=== PATIENT | female | born 1965 | race Caucasian/White ===

== ENCOUNTER 2023-06-23 10:32 | Emergency (ER) | payer MEDICARE, SELFPAY ==
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
[2023-06-23 10:48] VITALS: BP 150/104; PULSE 98; RESP 26; O2SAT 96
[2023-06-23] MEDS: Ziprasidone 20 MG VIAL 10 MG IM (11:06)
[2023-06-23 11:30] LABS: Abs Immature Grans 0.03 10^3/uL (0.0-0.06); Absolute Basophil Count 0.06 10^3/uL (0.0-0.2); Absolute Eosinophil Count 0.02 10^3/uL (0.0-0.7); Absolute Lymphocyte Count 1.94 10^3/uL (1.2-3.4); Absolute Monocyte Count 0.57 10^3/uL (0.1-0.8); Absolute Neutrophil Count 6.53 10^3/uL (1.2-6.7); Basophils % 0.7; Eosinophils % 0.2; HCT 38.8 % (36.0-46.0); Immature Grans % 0.3; Lymphocytes % 21.2; MCH 30.7 pg (27.0-33.0); MCHC 33.5 % (32.0-36.0); MCV 92 fL (80-95); MPV 10.3 fL (8.0-11.0); Monocytes % 6.2; Neutrophils % 71.4; Platelet Count 247 10^3/uL (130-400); RBC 4.23 10^6/uL (3.93-5.22); RDW 13.4 % (11.7-14.6); RDW-SD 45.8 fL; WBC 9.15 10^3/uL (4.4-10.8)
[2023-06-23 11:55] LABS: ALT 64 U/L (14-59); AST 109 U/L (15-37); Albumin 3.8 g/dL (3.4-5.0); Alkaline Phosphatase 71 U/L (46-116); Anion Gap 12.5 mmol/L (3-11); BUN 13 mg/dL (7-18); Bilirubin, Total 1.3 mg/dL (0.2-1.0); CO2 24.5 mmol/L (21.0-32.0); CREATININE 0.8 mg/dL (0.55-1.02); Calcium 9.1 mg/dL (8.5-10.1); Chloride 99 mmol/L (98-107); Estimated GFR 85.89 (mL/min/1.73m2); Glucose 165 mg/dL (74-106); Potassium 3.4 mmol/L (3.5-5.1); Sodium 136 mmol/L (136-145); TSH (W/Ref FT4) 2.12 uIU/mL (0.36-3.74); Total Protein 6.8 g/dL (6.4-8.2)
[2023-06-23 11:56] LABS: ETHANOL BLOOD < 3.0 mg/dL (<10)
[2023-06-23 11:58] LABS: Salicylate 5.1 mg/dL (<2.8)
[2023-06-23 12:00] LABS: Acetaminophen < 2 ug/mL (10-30)
--- NOTE | 2023-06-23 12:00 | DI.CT_ITS ---
Exam(s) CT HEAD WO EXAM: CT HEAD WO CLINICAL HISTORY: psychosis. TECHNIQUE: Imaging Protocol: Axial computed tomography images with coronal and sagittal reformatted images were created and reviewed COMPARISON: No exams were available for comparison FINDINGS: Ventricles and Extra axial spaces: Normal in size and morphology for the patient's age. Hemorrhage: None. Cerebral parenchyma: No evidence of acute infarct or mass. Midline shift: None. Brainstem/Cerebellum: Normal. Calvarium: Normal. Visualized Paranasal sinuses:Clear. Mastoids: Clear. Soft Tissues: Unremarkable. ORBITS: Unremarkable. PITUITARY: Not enlarged. IMPRESSION: No acute intracranial process. RADIATION DOSE DELIVERED: Total DLP DATA REPOSITORY: All CT scans at this facility are submitted to the National Radiology Data Registry (NRDR) Dose Index Registry (DIR) with the [employer] (ACR). RADIATION OPTIMIZATION: All CT scans at this facility use at least one of these dose optimization te chniques: automated exposure control; mA and/or kV adjustment per patient size (includes targeted exa ms where dose is matched to clinical indication); or iterative reconstruction.
[2023-06-23 12:13] LABS: Bilirubin Negative (Negative); Blood Negative (Negative); Clarity Clear (Clear); Glucose Negative (Negative); Ketones Trace mg/dL (Negative); Leukocyte Esterase Negative (Negative); Nitrite Negative (Negative); Specific Gravity 1.015 (1.005-1.025); Urobilinogen 0.2 mg/dL (Up to 0.2); pH 5.5 (5-8)
[2023-06-23 12:26] LABS: *AMPHETAMINES SCREEN URINE Negative (Negative); *BARBITURATES SCREEN URINE Negative (Negative); *BENZODIAZEPINES SCREEN URINE Negative (Negative); Cannabinoids THC Negative (Negative); Cocaine Screen,Urine Negative (Negative); METHADONE URINE SCREEN Negative (Negative); OPIATES URINE SCREEN Negative (Negative); Tricyclic Antidepressants Negative (Negative)
[2023-06-23 12:49] LABS: Ammonia < 10 umol/L (11-32)
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
--- NOTE | 2023-06-23 15:21 | W.EDPROG ---
Date of service: 06/23/23 Time of Service: 15:22 Medical Decision Making Patient here involuntary for psychosis and marcie, appears to have had this in the past and has been at [facility] several times for this in the past. Pending second WOO, patient currently calm and no acute complaints will continue to monitor until safe disposition found. Quality:SDOK Health Related Social Needs: No Data to Display Discharge Plan Discharge Details Chief Complaint: PsychEval Primary Care Provider: Unknown,Unknown ED Provider: Franki Brand Home Meds and New Rx's Prescriptions: No Action Unable to Obtain
[2023-06-23] MEDS: DULoxetine 20 MG CAP PO (19:33)
[2023-06-24] MEDS: Ibuprofen 800 MG TAB PO (03:47)
[2023-06-24] MEDS: DULoxetine 20 MG CAP PO (08:37)
[2023-06-24 08:38] VITALS: PULSE 97; RESP 16; TEMP 36.6; O2SAT 96
[2023-06-24] MEDS: Gabapentin 100 MG CAP PO ×3 (08:54→20:12)
--- NOTE | 2023-06-24 10:11 | PDOC.CMSAFE ---
Date of service: 06/24/23 Time of Service: 10:11 Care Management Safety Plan Status Status: Involuntary Reason for Wait Reason for Wait: Inpatient Admission Safety Plan Safety Plan: INVOLUNTARY FOR INPATIENT PSYCHIATRIC STABILIZATION.? Patient is appropriate in all interactions since arriving at [facility]; Pt has demonstrated appropriate coping and communication skills, has articulated his or her needs and concerns and is fully engaged during staff interactions. Safety plan has been established with patient, and care team, to adhere to patient goals, identify restrictions based on behavioral status, address nutrition, and determine allowed personal belongings, tools for hygiene and personal care. Determine level of activity including ambulation, level of supervision, visitors, and determine privileges based on behaviors and level of engagement by pt. SAFETY PLAN: 1. Will remain on suicide precautions, in paper clothes 2. Will remain in Zone B under direct supervision of one-on-one staff at all times provided by CPSO; DWAINE, CONSTRUCTION PROJECT COORDINATOR electric motor winder. 3. May have paper cups, plates, finger foods as well as a cardboard spoon with which to eat meals. 4. Follow [facility] Management of the Admitted Behavioral Health Patient policy. 5. Shower available in Zone B without restriction. 6. Personal belongings-soft items permitted at RN discretion. 7. Visitors-none at this time. 8. Activities: soft cart items approved per RN discretion. 9.? Bathroom available in Zone B without restriction. 10. Phone: limited to [facility] cordless phone at RN discretion. Due to INVOLUNTARY status, patient is being held at [facility] by the Department of Mental Health ([facility]) until 2nd certification by [facility] Psychiatrist can be performed (within 24 hours). Staff will provide de-escalation support (CPI) as needed. If patient wishes to leave [facility], staff will contact [facility] Crisis Screener ([phone]) and Litigation Associate ([phone]) as soon as possible. In the event of elopement, notify [place] [employer] ([phone]). Patient is currently involuntarily at [facility]. [facility] Frontline Foot Gatherer will continue seeking placement. Please contact the Litigation Associate for any needed changes to Safety Plan. Safety plan has been provided to interdepartmental care team. Patient will be transported by [facility] at time of discharge.
[2023-06-24] MEDS: Nicotine 4 MG GUM (11:06)
[2023-06-24] MEDS: Ibuprofen 600 MG TAB PO ×2 (13:41→20:13)
[2023-06-24] MEDS: Nicotine 4 MG GUM CH (19:02)
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
--- NOTE | 2023-06-24 20:22 | NUR.NOTE ---
Nursing Note:pt given po motrin and gabapentin, refused geodon, po egg salad sandwich given
--- NOTE | 2023-06-24 21:17 | NUR.NOTE ---
this patient showered , and i cleaned her room today. Nursing Note:
[2023-06-25] MEDS: Ibuprofen 600 MG TAB PO (03:42)
[2023-06-25] MEDS: Nicotine 4 MG GUM CH ×2 (05:39→13:13)
[2023-06-25] MEDS: Gabapentin 100 MG CAP PO ×2 (08:25→13:27)
--- NOTE | 2023-06-25 08:25 | W.EDPROG ---
Date of service: 06/25/23 Time of Service: 08:25 Medical Decision Making Patient signed out to me by Dr. Mcfadden still pending placement on involuntary status for marcie. No issues reported during Dr. Mcfadden shift, patient currently calm and cooperative walking around without acute complaints. Will continue to monitor until safe disposition found Quality:SDOH Health Related Social Needs: No Data to Display Sign Out Sign Out Data: Sign Out Comment: Involuntary for manic behavior, second CERT completed, no issues during shift. Last updated by Franki Brand MD at 06/23/23 21:59 Sign Out Comment: Involuntary admission, second certification completed. Pending placement. No intervals issues throughout the night. Last updated by Goran Mcfadden DO at 06/24/23 07:58 Sign Out Comment: Involuntary placement with psychosis 2nd cert completed , placement pending Meds, diet and PRNs ordered Last updated by Leeanna Preston MD at 06/24/23 15:51 Sign Out Comment: Remains on EE, 2nd cert completed. No issues on evening shift. Last updated by Alo Pittman MD at 06/24/23 22:18 Sign Out Comment: Patient was stable throughout the night. No interventions needed. Second certification completed, pending placement Last updated by Goran Mcfadden DO at 06/25/23 07:34 Discharge Plan Discharge Details Chief Complaint: PsychEval Primary Care Provider: Unknown,Unknown ED Provider: Franki Brand Home Meds and New Rx's Prescriptions: No Action Unable to Obtain
[2023-06-25] MEDS: DULoxetine 20 MG CAP PO (08:27)
--- NOTE | 2023-06-25 10:51 | NUR.NOTE ---
pt came out of room angry, asked for her belongings then punched the glass and went back to sleep:
--- NOTE | 2023-06-25 11:08 | NUR.NOTE ---
report called to geraldine at [facility] @[phone], nurse said she will call back with eta on [facility] transport
--- NOTE | 2023-06-25 13:41 | PDOC.CMPRO ---
Date of service: 06/25/23 Time of Service: 13:42 Care Management Progress Note Progress Note Text Progress Note Text: CM met with staff in the ED including RN, CPSO, RN toy assembly supervisor, and ROGERS Strong, for a huddle to discuss Aide's plan of care. Per staff, Aide has been agitated this morning, demanding her clothes and coffee, and at one point she punched the glass window near where the CPSO was sitting. ROGERS Strong, stated that she would not engage with her and asked Ligia to leave the room. [facility] has elevated Aide to level 1 status, due to acuity and insurance concerns, and [facility] has accepted her for admission today. [facility] coordinated transport, which staff anticipates will be arriving around 3pm today.
--- NOTE | 2023-06-25 14:44 | NUR.NOTE ---
Patient just stated that she came with boots that were not hers. They were just something she put on when she needed boots. She would like us to dispose of them. I told her when she was ready to leave that we would do it then. Nursing Note:
--- NOTE | 2023-06-25 15:34 | NUR.NOTE ---
pt leaving with EE transport to [facility] now, all belongings confirmed with pt and paperwork packet handed to transporter
--- NOTE | 2023-06-25 15:38 | NUR.NOTE ---
Patient stated on transfer, while going through her belongings that she did not want the boots and to throw them out. She did not take them. Nursing Note:
--- NOTE | 2023-06-25 18:41 | MHPN_ITS ---
Date of service: 06/25/23 Time of Service: 18:41 Mental Health Emergency Note Release [facility] release signed:: Yes Reason for Visit The client arrived on 06.23.23 voluntarily after a mobile outreach at [facility]. The client was subsequently placed on EE status due to dangerous behaviors, evidence of psychosis and risk of harm. This was her final assessment attempt as she has been accepted to [facility]. In the last 2 weeks has the pt presented for ES prior to today?: Unknown Impression The client was unable to be engaged today for an assessment. It was reported by nursing that she came to the nursing window and punched the glass. She demanded her clothes and a coffee. She was informed that if she could be nice she would get a coffee. She went to her room and layed down. This clinician walked in her room after knocking and asked the client how she was doing? She turned over in her bed and addressed this clinician by name. She sat up and this clinician asked her how she was doing? She stood up, walked to the bathroom to use it and when she came back said you need to leave my room please? This client would not engage any further. This clinician participated in a huddle and the client was learned to have been accepted to . Plan/Disposition Recommended Disposition: Hospitalization facilities contacted. Plan: Client accepted to and transported at 3pm via [facility]. Person reported agreement to plan: Yes Reports/communication Outcome discussed with: ED/Personnel
== END 2023-06-25 15:37 | disposition left against medical advice (07) ==
PROVIDERS: Emergency Medicine; Emergency Provider Emergency Medicine
DX: F30.2 Manic episode, severe with psychotic symptoms (principal)
CPT/HCPCS: 00123; 36415; 80053; 80307; 82962; 99285; 70450; 80320; 80329; 81003; 81025; 82140; 84443; 85025; J3486

== ENCOUNTER 2023-09-07 19:17 | Emergency (ER) | payer MEDICARE, SELFPAY ==
[2023-09-07 19:18] VITALS: BP 111/74; PULSE 73; RESP 20; TEMP 36.7; O2SAT 98
--- NOTE | 2023-09-07 19:22 | W.ED.GENAD ---
Discharge Plan Disposition Patient Disposition: Home Condition: Stable Discharge Details Clinical Impression: Encounter for medication refill, Anxiety Primary Care Provider: Unknown,Unknown ED Provider: Lacho Bean Meds and New Rx's Prescriptions: New gabapentin 300 mg capsule 300 mg PO TID Qty: 30 0RF duloxetine [Cymbalta] 20 mg capsule,delayed release(DR/EC) 20 mg PO BID Qty: 20 0RF No Action gabapentin 300 mg capsule 300 mg PO TID duloxetine 20 mg capsule,delayed release(DR/EC) 40 mg PO ONCE Discharge Instructions Instructions: Anxiety (ED) Discharge Data Discharge Physician: Lacho Bean HPI General Date/Time Provider Initiated Documentation: 09/07/23 19:22. HPI Narrative: Patient who presents to the emergency department via ambulance stating that she is homeless and they stole her Cymbalta and her gabapentin that she takes daily and is homeless. Reports that she has been walking the streets and she states that she has money but there is told her purse where she has her Cymbalta and her gabapentin. Denies any suicidal ideation states is very anxious Related Data Home Medications Medication Instructions Recorded Confirmed duloxetine 20 mg capsule,delayed 40 mg PO ONCE 09/07/23 09/07/23 release duloxetine 20 mg capsule,delayed 20 mg PO BID #20 caps 09/07/23 release (Cymbalta) gabapentin 300 mg capsule 300 mg PO TID 09/07/23 09/07/23 gabapentin 300 mg capsule 300 mg PO TID #30 caps 09/07/23 Previous Rx's Medication Instructions Recorded duloxetine 20 mg capsule,delayed 20 mg PO BID #20 caps 09/07/23 release (Cymbalta) gabapentin 300 mg capsule 300 mg PO TID #30 caps 09/07/23 Allergies Allergy/AdvReac Type Severity Reaction Status Date / Time Unable to Assess Allergy Unverified 09/07/23 19:24 General HUE: 2 Review of Systems Narrative: Review of Systems: Constitutional: No fevers, chills, sweats Eye: No recent visual problems ENT: No ear pain, nasal congestion, sore throat Respiratory: No shortness of breath, cough Cardiovascular: No Chest pain, palpitations, syncope Gastrointestinal: No nausea, vomiting, diarrhea Genitourinary: No hematuria Ethan/Lymph: Negative for bruising tendency, swollen lymph glands Endocrine: Negative for excessive thirst, excessive hunger Musculoskeletal: No back pain, neck pain, joint pain, muscle pain, decreased range of motion Integumentary: No rash, pruritus, abrasions Neurologic: Alert & oriented X 4 Psychiatric: No depression Exam Narrative Exam Narrative: Exam; vitals signs as reported above normal Constitutional; In no acute distress, afebrile General: cooperative, healthy appearing, comfortable and no acute distress HEENT: Head: normal to inspection, no palpable skull fracture and normocephalic atraumatic Eyes: : appearance normal, both eyes and all related structures EOM intact bilaterally Pupils: PERRL : conjunctiva normal Direct ophthalmoscopy: normal light reflex, normal conjunctiva, normal visual acuity Ears: Normal TM, normal external canal Nose: normal no rhinorreha Neck no JVD, supple non tender Neck: normal visual inspection, full ROM and no lymphadenopathy Chest: normal inspection of the chest Respiratory : normal respiratory effort and able to speak in complete sentences no wheezing no rales Cardio Rate: regular rate, rhythm: regular rhythm normal heart sounds S1 and S2 no murmurs, gallops, or rubs GI : normal to inspection, normal bowel sounds, soft, non tender, non distended, no organomegaly Back/Spine/ no CVA tenderness Thoracic/Lumbar Spine: no tenderness or deformities Skin no rashes or lesions Neuro: patient alert oriented x 4 and no meningeal signs, Cranial Nerves: CN's II-XI intact bilaterally, Cognition: normal cognition, Speech: speech normal, Gait: normal gait, Depp tendon reflexes normal 2+ muscle strength 5/5 bilaterally Extremities, no edema, full range of motion, normal strength feet with multiple calluses and with dirt Medical Decision Making MDM: Summary: Patient was homeless and has been walking the streets who states she ran out of the [employer] and the gabapentin we will try to give her a prescription and she states that she was getting go back to [place] so she can get her license and everything reinstated Data Review Analysis All the data on this patient was reviewed by me including laboratory and imaging studies as well as bedside studies performed by me Independent review of Studies Imaging Lab: Risk Stratification: Patient here with anxiety reaction who needs gabapentin and Cymbalta will give her a dose here and she will follow-up with her primary care doctor Differential Diagnosis: 1. Anxiety reaction 2. Depression 3. Social isolation 4. 5. Consultants: Shared disposition: Patient understands disposition and agrees Impression: Medical Records Medical records reviewed: Yes I reviewed the patient's medical records. Quality:SDOH Health Related Social Needs: No Data to Display PFSH All Active Problems (Updated 09/07/23 @ 19:36 by Lacho Bean MD) Anxiety (Chronic) Encounter for medication refill (Acute) Social History Smoking/Tobacco Use Status: Unknown Smoking risk assessment performed?: Yes Alcohol Intake: never Drug use: Never Substance use type: does not use Housing: homeless Do you feel safe at home: Yes Do you feel safe in your relationship?: Yes
[2023-09-07 20:14] VITALS: RESP 22
[2023-09-07] MEDS: Gabapentin 300 MG CAP 900 MG PO (20:26)
[2023-09-07] MEDS: DULoxetine 20 MG CAP 40 MG PO (20:26)
--- NOTE | 2023-09-08 07:03 | NUR.NOTE ---
Accessed pt chart to reconcile EKG orders with EKG?s in [facility]. No EKG in [facility], order cancelled. Nursing Note:
== END 2023-09-07 20:30 | disposition home or self-care (01) ==
PROVIDERS: Emergency Provider Emergency Medicine Emergency Medical Services
DX: F41.9 Anxiety disorder, unspecified (principal); Z59.00 Homelessness unspecified
CPT/HCPCS: 99283